=== PATIENT | female | born 1950 | race Caucasian/White ===

== ENCOUNTER → 2020-04-15 14:07 | Outpatient (CLI) | payer OTHER, SELFPAY ==
--- NOTE | ~2020-04-15 | MM_ITS ---
EXAMINATION: MM screening ursula BI w babar HISTORY: Screening mammogram TECHNIQUE: Craniocaudal and mediolateral oblique 3-D tomosynthesis images were obtained and synthetic 2-D images were generated. CAD analysis was submitted and interpreted. COMPARISON: 03/22/2018, 02/28/2017, 02/26/2015 bilateral digital screening mammogram examinations BREAST PARENCHYMAL COMPOSITION: There are scattered areas of fibroglandular density. FINDINGS: Numerous scattered bilateral benign calcifications are noted. Benign intramammary lymph nod e, left axillary tail. There is no evidence of suspicious mass, calcification, or architectural disto rtion to suggest malignancy in either breast. There has been no suspicious interval change. IMPRESSION: 1. No mammographic evidence of malignancy. 2. Recommend routine screening mammography in one year. BI-RADS Category 2: Benign finding(s). Reviewed, dictated and finalized at location A. PHONE ORDER SUPERVISOR
== END ==
PROVIDERS: PCP Internal Medicine; Visit Provider Nurse Practitioner
DX: Z12.31 Encounter for screening mammogram for malignant neoplasm of breast (principal)
CPT/HCPCS: 77063; 77067

== ENCOUNTER 2021-09-28 14:00 | Outpatient (RCR) | payer OTHER, SELFPAY ==
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
--- NOTE | 2021-10-09 12:45 | PCPTNOTE ---
Patient's called & cancelled all of her scheduled appointment this date, stating she is feeling better & doesn't need it anymore.
--- NOTE | 2021-10-14 07:41 | PCPTNOTE ---
PHYSICAL THERAPY DISCHARGE NOTE Attending Provider: Lencho Can DO Patient:Janeth Rachel Date of :1950 Patient has not returned for any further treatments since 09/28/2021, therefore she will be discharged at this time. Her called to cancel her remaining appointments as she was feeling better and did not need PT anymore. Patient?s initial visit was on 09/28/2021. Thank you for referring this patient to [facility]. Please review, sign, date and return this discharge summary INDER. I have been updated about the patient's current status and I agree with discharge from the above service at this time. Referring Physician Date
== END 2021-10-14 12:16 | disposition home or self-care (01) ==
LOC: ANHPT 14:00
PROVIDERS: PCP Internal Medicine; Referring Provider Internal Medicine; Visit Provider Internal Medicine
DX: M54.50 Low back pain, unspecified (principal); G89.29 Other chronic pain
CPT/HCPCS: 97110; 97112; 97162

== ENCOUNTER 2021-10-16 14:48 | Outpatient (CLI) | payer OTHER, SELFPAY ==
--- NOTE | ~2021-10-16 | US_ITS ---
EXAMINATION: US renal BI DATE: 10/16/2021 15:51 INDICATION: Chronic kidney disease TECHNIQUE: Multiple grayscale and Doppler ultrasound images of the kidneys were obtained. COMPARISON: None. FINDINGS: The right kidney measures 9.6 x 4.1 x 5.2 cm. The left kidney measures 9.9 x 5.0 x 5.4 cm. The kidneys demonstrate normal parenchymal echogenicity. There is no hydronephrosis. The bladder is n ormal. IMPRESSION: 1. Mild atrophy of the kidneys. Reviewed, dictated and finalized at location F.
== END 2021-10-16 14:49 | disposition home or self-care (01) ==
PROVIDERS: PCP Internal Medicine; Visit Provider Internal Medicine Nephrology
DX: N18.32 Chronic kidney disease, stage 3b (principal); I12.9 Hypertensive chronic kidney disease with stage 1 through stage 4 chronic kidney disease, or unspecified chronic kidney disease; E11.29 Type 2 diabetes mellitus with other diabetic kidney complication
CPT/HCPCS: 76775

== ENCOUNTER 2023-02-01 11:22 | Emergency (ER) | payer OTHER, SELFPAY ==
--- NOTE | ~2023-02-01 | CT_ITS ---
EXAMINATION: CT brain wo con INDICATION: Head injury COMPARISON: None TECHNIQUE: Standard unenhanced head CT. The dose-length product (DLP) was 681.00 mGy-cm. The mA was a djusted according to patient size. Iterative reconstruction technique was employed. FINDINGS: No acute intraparenchymal hemorrhage. No evidence of mass lesion. No evidence of acute infa rction. There is mild periventricular and subcortical hypodensity probably related to small vessel is chemic disease. There is mild prominence of the sulci and ventricles related to cerebral atrophy. Int racranial calcified cerebral atherosclerosis is noted. No extra-axial collections. No mass effect or midline shift. Changes in the globes are likely from ocular lens surgery. There is a left supraorbita l soft tissue laceration The visualized sinuses and mastoid air cells are well aerated. IMPRESSION: 1. No acute intracranial abnormality. 2. Age related findings. Reviewed, dictated and finalized at location L.
[2023-02-01 12:26] VITALS: BP 138/64; PULSE 78; RESP 18; TEMP 36.8; O2SAT 94
--- NOTE | 2023-02-01 15:06 | ED.HEATRA ---
HPI - Head Injury General Chief complaint: Head Injury Stated complaint: head injury Time Seen by Provider: 02/01/23 14:47 Source: patient Mode of arrival: ambulatory Limitations: no limitations History of Present Illness HPI Narrative: This is 73 year old female who presents for evaluation of left eyebrow laceration. PAtient states this morning she was sleeping when she rolled over in bed striking her head on nightstand. She denies headache, dizziness, nausea or vomiting. She denies taking blood thinner. sHe reports mild neck soreness. SHe thinks her last tetanus was in 2013. Related Data Home Medications Medication Instructions Recorded Confirmed cranberry 400 mg capsule 400 mg PO DAILY 03/30/19 01/10/23 omeprazole 20 mg capsule,delayed 20 mg PO DAILY 03/30/19 01/10/23 release melatonin 10 mg capsule 10 mg PO QHS 11/18/22 01/10/23 Allergies Allergy/AdvReac Type Severity Reaction Status Date / Time Sulfa (Sulfonamide Allergy Unknown Itching Verified 01/10/23 09:24 Antibiotics) Review of Systems Review of Systems: All systems reviewed & are unremarkable except as noted in HPI and below PMFSH Past Medical History Medical History Screening for breast cancer Vitamin D deficiency, unspecified Surgical History Surgical History H/O cataract removal with insertion of prosthetic lens History of knee replacement History of knee replacement Hx of tonsillectomy Family History Family History Sibling Cerebrovascular accident Family history of heart disease in male family member before age 55 Mother Family history of malignant neoplasm of breast in first degree relative, Onset Age: 63 Patient's mother is Father Patient's father is Family history of alcoholism Acute myocardial infarction Other Family history of thyroid disease Social History Social History Smoking packs per day: 0.25 Smoking cigarettes per day: 5.0 Years smoked: 3 Smoking pack-years: 0.75 Smoking status: Former smoker Tobacco type: cigarettes Smoking end date: 05/16/79 Alcohol intake: never Substance use: never Substance use type: does not use Lack of Transportation: No Lack of Food: Never True Current Housing: I Have Housing Concerned About Future Housing: No Difficulty Paying Gas/Electric Bills: No Difficulty Paying for Meds: No Currently Unemployed: No Education: High School Diploma/GED Difficulty w/ Childcare or Family Care: No Exam Const: General: no acute distress and alert Nutritional Appearance: well nourished Orientation/consciousness: patient oriented x3 HENMT: Head: laceration Mouth: Yes Normal oral and palatal mucosa present and Yes lip normal Throat: posterior oropharynx normal Other: laceration above left eyebrow 3 cm Eyes: Conjunctivae: conjunctivae normal Pupils: Equal, round and reactive pupils present EOM: EOMs intact bilaterally Neck: Neck: normal visual inspection and no lymphadenopathy Chest: Chest palpation & inspection: normal inspection of the chest Resp: Effort & Inspection: normal respiratory effort Neuro: General: patient oriented x3 and moves all extremities Psych: Mental Status: mental status grossly normal Affect: normal affect Attitude: cooperative Course Reevaluation(s) Reevaluation #1: I Discussed with patient about wound care. absorbable sutures Date: 02/01/23 Time: 17:45 Vital Signs Vital signs: Vital Signs Temperature 98.2 F 02/01/23 12:26 Pulse Rate 78 02/01/23 12:26 Respiratory Rate 18 02/01/23 12:26 Blood Pressure 138/64 02/01/23 12:26 Pulse Oximetry 94 02/01/23 12:26 Oxygen Delivery Room Air 02/01/23 12:26 Temperature 98.2 F 02/01/23
[2023-02-01] MEDS: TETANUS,DIPHTHERIA,AC PERTUSSIS ADULT (0.5 ML) BOOSTRIX IM (15:50)
== END 2023-02-01 17:49 | disposition home or self-care (01) ==
PROVIDERS: Emergency Provider General Practice; PCP Family Medicine
DX: S01.81XA Laceration without foreign body of other part of head, initial encounter (principal); Z87.891 Personal history of nicotine dependence; Z23 Encounter for immunization; W06.XXXA Fall from bed, initial encounter
CPT/HCPCS: 12013; 70450; 90471; 90715; 99284

== ENCOUNTER → 2023-02-17 12:58 | Outpatient (CLI) | payer OTHER, SELFPAY ==
--- NOTE | ~2023-02-17 | MM_ITS ---
EXAMINATION: MM screening ursula BI w babar HISTORY: Screening mammogram, family history of breast cancer in her mother. TECHNIQUE: Craniocaudal and mediolateral oblique 3-D tomosynthesis images were obtained and synthetic 2-D images were generated. CAD analysis was submitted and interpreted. COMPARISON: 04/15/2020, 03/22/2018, 02/28/2017 BREAST PARENCHYMAL COMPOSITION: There are scattered areas of fibroglandular density. FINDINGS: Scattered benign-appearing calcifications are present. No suspicious mass, calcification, o r architectural distortion are identified in either breast to suggest malignancy. There has been no s uspicious interval change. IMPRESSION: 1. No mammographic evidence of malignancy. 2. Recommend routine screening mammography in one year. BI-RADS Category 2: Benign finding(s). Reviewed, dictated and finalized at location A.
== END ==
PROVIDERS: PCP Nurse Practitioner; Visit Provider Nurse Practitioner
DX: Z12.31 Encounter for screening mammogram for malignant neoplasm of breast (principal)
CPT/HCPCS: 77063; 77067

== ENCOUNTER 2024-10-30 15:17 | Outpatient (CLI) | payer OTHER, SELFPAY ==
--- NOTE | ~2024-10-30 | XR_ITS ---
CHEST RADIOGRAPH, PA AND LATERAL CLINICAL HISTORY: R05.9 - Cough, unspecified . COMPARISON: 06/17/2014 TECHNIQUE: PA and lateral views of the chest. FINDINGS The cardiomediastinal silhouette is markedly enlarged, an interval change from prior. Prominence of the bilateral pulmonary dwaine are also noted, possibly representing lymphadenopathy, an interval change from prior. Interstitial thickening is present. IMPRESSION: Interval development of cardiomegaly when compared with 2015 examination. Prominent bilateral pulmonary dwaine for which lymphadenopathy versus enlarged pulmonary vasculature is suspected. Cross-sectional imaging (noncontrast enhanced CT examination of the chest) may be perform ed for further evaluation. The lungs are clear. Reviewed, dictated and finalized at location A. IMPRESSION: Interval development of cardiomegaly when compared with 2014 examination. Prominent bilateral pulmonary dwaine for which lymphadenopathy versus enlarged pu lmonary vasculature is suspected. Cross-sectional imaging (noncontrast enhanced CT examination of the chest) may be performed for further evaluation. The lungs are clear.
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
--- OUTSIDE RECORDS SUMMARY | 2024-10-30 16:17 | XMS_ITS | Clinical Summary ---
Author Organization [facility] Address [address] [place] [id number] Care Team Providers Care Disability Representative Name Role Phone Unavailable Primary Care Provider Unavailabl e Social History Tobacco Use Types Packs/Day Years Used Date Smoking Tobacco: Never Assessed Comments Unknown Sex and Gender Information Value Date Recorded Sex Assigned at Not on file Legal Sex Female 9:35 PM CDT Gender Identity Not on file Sexual Orientation Not on file Plan of Treatment Health Maintenance Due Date Last Done Comments Colorectal Cancer Screening Colonoscopy (10 Years) 1950 Hepatitis C 1967 DTaP, Tdap and Td Vaccines ( 1 - Tdap) 01/13/1968 Pneumococcal Vaccine: 50+ Ye ars (1 of 1 - PCV) 1999 Zoster Vaccines (1 of 2) 1999 Dexa Scan (General) 2014 RSV Immunization or 60+ Years (1 - 1-dose 75+ series) 01/13/2024 COVID-19 Vaccine ( - 2023-2 5 season) 2024 Meningococcal B Vaccine Aged Out No l onger eligible based on patient's age to complete this topic Meningococcal Vaccine Aged Out No lisa myrna eligible based on patient's age to complete this topic RSV Immunizations Under 20 Months Aged Out No longer eligible based on patient's age to complete this topic
== END 2024-10-30 15:18 | disposition home or self-care (01) ==
LOC: ANHIMG 15:22
PROVIDERS: PCP Nurse Practitioner; Visit Provider Nurse Practitioner
DX: R05.9 Cough, unspecified (principal)
CPT/HCPCS: 71046

== ENCOUNTER 2024-11-09 16:20 | Outpatient (CLI) | payer OTHER, SELFPAY ==
--- NOTE | ~2024-11-09 | CT_ITS ---
CT Scan of the Chest without Contrast: Clinical Indication: Abnormal findings on diagnostic imaging Technique: Contiguous sections were acquired throughout the chest without intravenous contrast. Dose reduction technique was used on this scan by utilizing automated exposure control and iterative recon struction technique. The dose-length product (DLP) was 854.39 mGy-cm. 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 There is no evidence of any significant mediastinal, hilar or axillary lymphadenopathy. Coronary andrzej ry calcifications are present. There is no evidence of pleural or pericardial effusion. There is mild chronic interstitial disease in the lungs, with peripheral distribution. 5 mm left basi lar pulmonary nodule present (axial image 88). Images through the upper abdomen reveal no abnormalities. Prominence of the adrenal glands suggests a drenal hyperplasia. There is mild degenerative spondylosis of the thoracic spine. Impression: Mild chronic interstitial pulmonary disease, as above. 5 mm left basilar pulmonary nodule. According to Fleischner Society criteria, for a low-risk patient, no further follow-up required. For a high-risk patient, consider 12 month follow-up CT. 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 Reviewed, dictated and finalized at location M. Impression: Mild chronic interstitial pulmonary disease, as above. 5 mm left basilar pulmonary nodule. According to Fleischner Society criteria, f or a low-risk patient, no further follow-up required. For a high-risk patient, consider 12 month follow-up CT. 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
== END 2024-11-09 16:21 | disposition home or self-care (01) ==
PROVIDERS: PCP Nurse Practitioner; Visit Provider Nurse Practitioner
DX: R93.89 Abnormal findings on diagnostic imaging of other specified body structures (principal); J84.9 Interstitial pulmonary disease, unspecified; R91.1 Solitary pulmonary nodule
CPT/HCPCS: 71250

== ENCOUNTER 2024-12-06 11:59 | Outpatient (CLI) | payer OTHER, SELFPAY ==
--- NOTE | ~2024-12-06 | US_ITS ---
US thyroid INDICATION: Nontoxic goiter TECHNIQUE: Real-time sonographic images of the thyroid gland were obtained. COMPARISON: No prior studies for comparison. FINDINGS: The right thyroid lobe measures 4.8 x 2 x 1.4 cm. The left thyroid lobe measures 6.7 x 2.7 x 3.1 cm.. There is heterogeneous bilateral thyroid echotexture. In the right lobe there is a solid hypoechoic wider than tall smoothly marginated mass without echogenic foci measuring 2.1 x 1.4 x 1.4 cm. In the left lobe there is a complex heterogeneous mass measuring 3.8 x 3 cm which is solid, sligh tly hypoechoic, wider than tall, irregular margins with internal echogenic foci, TR 5. There is a sma ller mass in the left lobe measuring 3.1 x 2.4 x 2.6 cm which is solid hypoechoic wider than tall smo othly marginated without echogenic foci, TR 4. Normal vascular flow is present. IMPRESSION: 1. Multiple bilateral thyroid masses meet sonographic criteria for biopsy including a 2.1 cm mass in the right lobe and 2 additional masses in the left lobe. Follow-up ultrasound-guided congressional representative biopsy recommended. Reviewed, dictated and finalized at location B. IMPRESSION: 1. Multiple bilateral thyroid masses meet sonographic criteria for biopsy incl uding a 2.1 cm mass in the right lobe and 2 additional masses in the left lobe. Follow-up ultrasound-guided congressional representative biopsy recommended.
--- OUTSIDE RECORDS SUMMARY | 2024-12-06 12:02 | XMS_ITS | Clinical Summary ---
Author Organization [facility] Address [address] [place] [id number] Care Team Providers Care Cargo Broker Name Role Phone Unavailable Primary Care Provider [...]
--- OUTSIDE RECORDS SUMMARY | 2024-12-06 12:02 | XMS_ITS | Clinical Summary ---
Author Organization [facility] Address [address] [place] [address] Care Team Providers Care Regional Vice President Surgical Sales Name Role Phone Unavailable Primary Care Provider Unavailabl e Source Comments [facility],non-owned Affiliates and Associated Physician Practices is amultiple site organization consisting of ambulatory clinics and hospital sitesin [place], [place], [place] and [place]. This disclosure is being madepursuant to the Care Everywhere program and may not contain all information available regarding this patient. 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
--- OUTSIDE RECORDS SUMMARY | 2024-12-06 12:02 | XMS_ITS | Clinical Summary ---
Author Organization [facility] Address [address] [place] [phone] Phone Care Team Providers Care Broadcast Program Director Name Role Phone Lencho Can DO Primary Care Provider Allergies Active Allergy Reactions Criticality Noted Date [...] Diagnosed Date Atherosclerotic heart diseas e of [place] coronary artery without angina pectoris 02/23/2013 Laceration [...] 4 - PCV) 02/23/2014 02/23/2013 Influenza Vaccine (#1) 2025 02/23/2013 Insurance [employer] H[employer] Care Teams Broadcast Program Director Relationship Specialty Start Date End Date Lencho Can DO [address] [place] [id number] PCP - General Internal Medicine 09/14/21
== END 2024-12-06 12:00 | disposition home or self-care (01) ==
PROVIDERS: PCP Internal Medicine; Visit Provider Internal Medicine
DX: E04.2 Nontoxic multinodular goiter (principal)
CPT/HCPCS: 76536

== ENCOUNTER 2025-01-01 12:47 | Outpatient (CLI) | payer OTHER, SELFPAY ==
--- OUTSIDE RECORDS SUMMARY | 2025-01-01 12:58 | XMS_ITS | Clinical Summary ---
Author Organization [facility] Address [address] [place] [address] Care Team Providers Care Laborer Gold Leaf Name Role Phone Unavailable Primary Care Provider Unavailabl e Source Comments [facility],non-owned Affiliates and Associated Physician Practices is amultiple site organization consisting of ambulatory clinics and hospital sitesin [place], [place], [place] and [place]. This disclosure is being madepursuant to the Care Everywhere program and may not contain all information available regarding this patient. 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
--- OUTSIDE RECORDS SUMMARY | 2025-01-01 12:59 | XMS_ITS | Clinical Summary ---
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
--- NOTE | 2025-01-01 13:05 | ECHO_ITS ---
Patient Info Name: Janeth Rachel Age: 74 years : 1950 Gender: Female Ht: 66 in Wt: 290 lbs BSA: 2.55 m2 HR: 96 bpm BP: 100 / 69 mmHg Heart Rhythm: Atrial Fibrillation Technical Quality: Good Exam Date: 01/01/2025 1:14 PM Patient Status: O Admit Date: 01/01/2025 Exam Type: CA echo doppler color flow Complete two-dimensional, color flow and Doppler transthoracic echocardiogram is performed. Electrode Cleaner: Ioana Lozano Attending Provider: Adolfo Oquendo Summary 1. Complete two-dimensional, color flow and Doppler transthoracic echocardiogram is performed. 2. Left ventricular chamber dimension is normal. 3. Left ventricular systolic function is normal, estimated at 55-60. 4. There is moderate concentric increased left ventricular wall thickness. 5. The left ventricular diastolic function is abnormal. 6. E/e' 13 is mildly elevated. 7. Atrial fibrillation. 8. Right ventricular chamber dimension is moderately enlarged. 9. Right ventricular systolic function is moderately reduced and with abnormal TAPSE 1.3 cm. 10. Right atrial chamber dimension is moderately enlarged. 11. There is mild aortic valve sclerosis. 12. The mitral valve has a moderately calcified annulus. 13. There is mild mitral valve regurgitation. 14. There is mild tricuspid valve regurgitation. 15. Severe pulmonary hypertension, estimated pulmonary arterial systolic pressure is 61 mmHg. 16. Dilated inferior vena cava with >50% collapse upon inspiration consistent with elevated right atrial pressure, 10 mmHg. 17. There is trivial pericardial effusion. Left Ventricle E/e' 13 is mildly elevated. Left ventricular chamber dimension is normal. Left ventricular systolic function is normal, estimated at 55-60. There is moderate concentric increased left ventricular wall thickness. The left ventricular diastolic function is abnormal. Atrial fibrillation. Right Ventricle Right ventricular chamber dimension is moderately enlarged. Right ventricular systolic function is moderately reduced and with abnormal TAPSE 1.3 cm. Left Atria Left atrial chamber dimension is normal. Right Atria Right atrial chamber dimension is moderately enlarged. Aortic Valve The aortic valve is trileaflet. There is mild aortic valve sclerosis. There is no aortic valve stenosis. There is no aortic valve regurgitation. Pulmonic Valve There is no pulmonic regurgitation. Mitral Valve The mitral valve has a moderately calcified annulus. There is no mitral valve stenosis. There is mild mitral valve regurgitation. Tricuspid Valve There is mild tricuspid valve regurgitation. Severe pulmonary hypertension, estimated pulmonary arterial systolic pressure is 61 mmHg. Pericardium/Pleural There is trivial pericardial effusion. Inferior Vena Cava Dilated inferior vena cava with >50% collapse upon inspiration consistent with elevated right atrial pressure, 10 mmHg. Aorta The aortic root size at the sinus of Valsalva is normal. Left Ventricular Outflow Tract Name Value Normal LVOT 2D LVOT Diameter 2.0 cm LVOT Doppler LVOT Peak Velocity 84 cm/s LVOT Peak Gradient 3 mmHg LVOT Mean Gradient 2 mmHg LVOT VTI 19 cm LVOT VTI/AV VTI Ratio 0.7 LVOT Stroke Volume 59 ml LVOT CO 11.2 l/min LVOT CI 4.4 l/min/m2 Pulmonic Valve Name Value Normal PV Doppler PV Peak Velocity 80 cm/s PV Peak Gradient 3 mmHg Mitral Valve Name Value Normal MV Diastolic Function MV E Peak Velocity 112 cm/s MV A Peak Velocity 70 cm/s MV E/A 1.6 MV Decel Time (PW) 176 ms MV Annular TDI MV E/e' (Septal) 12.5 MV E/e' (Lateral) 13.8 MV E/e' (Average) 13.2 Tricuspid Valve Name Value Normal TV Regurgitation Doppler TR Peak Velocity 359 cm/s TR Peak Gradient 51 mmHg Estimated PAP/RSVP RA Pressure 10 mmHg <=5 PA Systolic Pressure 61 mmHg <36 RV Systolic Pressure 61 mmHg <36 TV Annular TDI TV Lateral Li s' Velocity 7.4 cm/s >=9.5 Aorta Name Value Normal Ascending Aorta Ao Root Diameter (MM) 3.2 cm Ao Root Diam Index (MM) 1.3 cm/m2 Aortic Valve Name Value Normal AV Doppler AV Peak Velocity 128 cm/s AV Peak Gradient 7 mmHg AV Mean Gradient 5 mmHg AV VTI 28 cm AV Area (Cont Eq VTI) 2.1 cm2 >=3.0 AV Area (Cont Eq Ata) 2.0 cm2 AV DI (Ata) 0.65 AV Regurgitation 2D LVOT Area 3.1 cm2 Ventricles Name Value Normal LV Dimensions 2D/MM IVS Diastolic Thickness (2D) 1.5 cm 0.6-1.0 LVID Diastole (2D) 4.4 cm 3.8-5.2 LVIW Diastolic Thickness (2D) 1.4 cm 0.6-0.9 LVID Systole (2D) 3.1 cm 2.2-3.5 LVOT Diameter 2.0 cm LV Mass (2D Cubed) 255.40 g 67.00-162.00 LV Mass Index (2D Cubed) 100 g/m2 43-95 Relative Wall Thickness (2D) 0.64 <=0.42 LV Fractional Shortening/Ejection Fraction 2D/MM LV Fractional Shortening (2D) 29 % 27-45 LV EF (2D Teichholz) 56 % LV Diastolic Volume (4C MOD) 62 ml LV EF (4C MOD) 65 % LV Diastolic Volume (2C MOD) 86 ml LV EF (2C MOD) 54 % LV Diastolic Volume (BP MOD) 77 ml 46-106 LV Diastolic Volume Index (BP MOD) 30 ml/m2 29-61 LV Systolic Volume (BP MOD) 29 ml 14-42 LV Systolic Volume Index (BP MOD) 11 ml/m2 8-24 LV EF (BP MOD) 62 % 54-74 LV Diastolic Length (4C) 7.7 cm LV Systolic Length (4C) 5.8 cm LV Stroke Volume (4C MOD) 41 ml RV Dimensions 2D/MM RVID Diastole (2D) 5.4 cm 2.1-3.5 Atria Name Value Normal LA Dimensions LA Dimension (MM) 4.8 cm 2.7-3.8 LA Volume (4C A-L) 68 ml LA Volume (BP A-L) 63 ml RA Dimensions RA Systolic Major [place] Length (4C) 6.3 cm 2.2-2.8 RA Area (4C) 31.9 cm2 <=18.0 Report Signatures
== END 2025-01-01 12:48 | disposition home or self-care (01) ==
LOC: ANHCARD 12:49
PROVIDERS: PCP Nurse Practitioner; Visit Provider Nurse Practitioner
DX: I08.3 Combined rheumatic disorders of mitral, aortic and tricuspid valves (principal)
CPT/HCPCS: 93306

== ENCOUNTER 2025-01-09 14:04 | Outpatient (CLI) | payer OTHER, SELFPAY ==
--- OUTSIDE RECORDS SUMMARY | 2025-01-09 14:09 | XMS_ITS ---
Author Organization Unknown ENCOUNTERS Encounter Performer Location Date Diagnosis Diagnosis Status Outpatient [facility] [address] [place] [id number] [facility] [address] [place] [address] [id number] [facility] Outpatient [facility] [address] [place] [id number] [address] [facility] [address] [place] [id number] [address] [facility] [address] [place] [address] [id number] [facility] Pre Admit [facility] [address] [place] [address] [id number] Emergency [facility] [address] [place] [address] [id number] [facility] [address] [place] [address] [id number] [facility] Outpatient [facility] [address] [place] [address] [id number] [facility] *Note: Encounters from your own facility or health system may be excluded. Allergies, Adverse Reactions, Alerts Allergen Type Severity Identification Date Sulfa (Sulfonamide Antibiotics) drug allergy 3 [id number] Medications Name Date Quantity Days Supplied GPI Number
--- OUTSIDE RECORDS SUMMARY | 2025-01-09 14:09 | XMS_ITS | Clinical Summary ---
Author Organization [facility] Address [address] [place] [address] Care Team Providers Care Ship Mate Name Role Phone Unavailable Primary Care Provider Unavailabl e Source Comments [facility],non-owned Affiliates and Associated Physician Practices is amultiple site organization consisting of ambulatory clinics and hospital sitesin [place] and [place]. This disclosure is being madepursuant to the Care Everywhere program and may not contain all information available regarding this patient. 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
--- OUTSIDE RECORDS SUMMARY | 2025-01-09 14:09 | XMS_ITS | Clinical Summary ---
Author Organization [facility] Address [address] [place] [address] Care Team Providers Care Sephora Product Consultant Name Role Phone Unavailable Primary Care Provider Unavailabl e Social History Tobacco Use Types Packs/Day Years Used Date Smoking Tobacco: Never Assessed Comments Unknown Sex and Gender Information Value Date Recorded Sex Assigned at Not on file Legal Sex Female 9:35 PM CDT Gender Identity Not on file Sexual Orientation Not on file Plan of Treatment Upcoming Encounters Date Type Department Care Team (Late st Contact Info) Description 01/30/2025 10:30 AM CDT Appointment [facility] Ultrasound [address] [place] [address] Adolfo Oquendo, INFECTIOUS WASTE TECHNICIAN [address] [place] [address] Health Maintenance Due Date Last Done Comments [...]
--- OUTSIDE RECORDS SUMMARY | 2025-01-09 14:09 | XMS_ITS | Clinical Summary ---
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
--- NOTE | 2025-01-10 10:12 | WPDPFTINT ---
PFT Procedure Performed PFT Procedure Performed Spirometry with Pre/Post Bronchodilator Plethysmography (Lung Vol) Diffusing Cap (DLCO) Flow Vol Loop PFT Interpretation This is a pulmonary function test with spirometry, plethysmography and diffusing capacity. The test was performed and results interpreted in accordance with the 2019 and 2005 ATS/ERS Task Force guidelines respectively using the Global Lung Function Initiative-2012 reference equations. Patient demonstrated good effort and cooperation. Reproducibility criteria were met. The quality of the spirometry maneuver was Grade A. Findings: Spirometry: The contour the inspiratory and expiratory flow tracing are normal. The FVC is 1.93 L, 66% predicted. The FEV1 is 1.54 L, 69% predicted. The FEV1: FVC ratio is 80%. Plethysmography: The total lung capacity is 3.44 L, 64% predicted. The functional residual capacity is 1.72 L, 55% predicted. The residual volume is 1.51 L, 63% predicted. Diffusing capacity: The diffusing capacity unadjusted for hemoglobin and carboxyhemoglobin is 14.1, 68% predicted. The diffusing capacity adjusted for alveolar volume is 4.46, 108% predicted. Impression: There is a moderate restrictive ventilatory abnormality. The spirometry is normal without evidence of an obstructive abnormality. The diffusing capacity unadjusted for hemoglobin and carboxyhemoglobin is mildly decreased and normalizes when adjusted for alveolar volume. There are no prior studies for comparison
== END 2025-01-09 14:05 | disposition home or self-care (01) ==
PROVIDERS: PCP Nurse Practitioner; Visit Provider Internal Medicine
DX: I27.20 Pulmonary hypertension, unspecified (principal); R94.2 Abnormal results of pulmonary function studies
CPT/HCPCS: 94375; 94726; 94729

== ENCOUNTER 2025-04-05 14:32 | Outpatient (CLI) | payer OTHER, SELFPAY ==
--- NOTE | ~2025-04-05 | US_ITS ---
EXAMINATION: US thyroid DATE: 04/05/2025 15:58 INDICATION: Follow-up for bilateral thyroid nodules. History of fine-needle aspiration biopsy was inconclusive results. TECHNIQUE: Multiple ultrasound images of the thyroid were obtained. COMPARISON: Prior study dated 12/06/2024. FINDINGS: The right thyroid lobe measures 5.2 x 2.2 cmX2 cm. The left thyroid lobe measures 5.9 x 4.4 x 4 cm. Multiple bilateral thyroid nodules are noted again. Dominant, isoechoic nodules of the left lobe measures 3.2 cm and 2.5 cm each. Dominant mildly hyperechoic nodule of right lobe measures 2 cm in diameter. No microcalcifications are present. Lesions are prominent or oval in size. IMPRESSION: 1. Moderate thyromegaly. Bilateral thyroid nodules as described above are stable in size and morphology compared with 12/06/2024. The nodules are indeterminate in nature and require continued follow-up at six-month interval to ensure benign process. TI-RADS Category 3 Reviewed, dictated and finalized at location T. COLORER IMPRESSION: 1. Moderate thyromegaly. Bilateral thyroid nodules as described above are stabl e in size and morphology compared with 12/06/2024. The nodules are indeterminate in nature and require continued follow-up at six-month interval to ensure lena gn process. TI-RADS Category 3
--- OUTSIDE RECORDS SUMMARY | 2025-04-05 14:37 | XMS_ITS | Encounter Summary ---
Author Organization [facility] Address [address] [place] [address] Care Team Providers Care Service Advocate Contact Name Role Phone Lencho Can DO Primary Care Provider [phone] Encounter Details Date Type Department Care Team (Late st Contact Info) Description 01/30/2025 Hospital Orders Only [facility] Interventional Radiology [address] [place], [place] [address] Brittany Mike MD [address] [place] [address] Social History Tobacco Use Types Packs/Day Years Used Date Smoking Tobacco: Never Assessed Comments Unknown Sex and Gender Information Value Date Recorded Sex Assigned at Not on file Legal Sex Female 9:35 PM CDT Gender Identity Not on file Sexual Orientation Not on file documented as of this encounter Plan of Treatment Not on file documented as of this encounter Visit Diagnoses Not on filedocumented in this encounter Care Teams Service Advocate Contact Relationship Specialty Start Date End Date Lencho Can DO [address] [employer] [address] [address] PCP - General INTERNAL MEDICINE 01/28/25 documented as of this encounter
--- OUTSIDE RECORDS SUMMARY | 2025-04-05 14:37 | XMS_ITS | Clinical Summary ---
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
--- OUTSIDE RECORDS SUMMARY | 2025-04-05 14:37 | XMS_ITS | Clinical Summary ---
Author Organization [facility] Address [address] [place] [address] Care Team Providers Care Airbrush Artist Photography Name Role Phone Unavailable Primary Care Provider Unavailabl e Source Comments [facility] [employer],non-owned Affiliates and Associated Physician Practices is amultiple site organization consisting of ambulatory clinics and hospital sitesin [place], [place], [place] and [place]. This disclosure is being madepursuant to the Care Everywhere program and may not contain all information available regarding this patient. 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
--- OUTSIDE RECORDS SUMMARY | 2025-04-05 14:37 | XMS_ITS | Clinical Summary ---
Author Organization [facility] Address [address] [place] [id number] Care Team Providers Care Solar Tech Name Role Phone Lencho Can DO Primary Care Provider [phone] Encounters Date Type Department Care Team Description 01/30/2025 10:26 AM CDT - 01/30/2025 11:59 PM CDT Hospital Encounter [facility] [address] Jarrett Crowell NP Discharge Disposition: Inpatient Rehab Facility 01/30/2025 Travel 01/30/2025 Hospital Orders Only [facility] [place] [address] Brittany Mike MD from Last 3 Months Social History Tobacco Use Types Packs/Day Years Used Date Smoking Tobacco: Never Assessed Comments Unknown Sex and Gender Information Value Date Recorded Sex Assigned at Not on file Legal Sex Female 9:35 PM CDT Gender Identity Not on file Sexual Orientation Not on file Plan of Treatment Health Maintenance Due Date Last Done Comments Hepatitis C 1967 Zoster Vaccines (1 of 2) 1999 Annual Medicare Wellness Visit 2014 Dexa Scan (General) 2014 RSV Immunization or 60+ Years (1 - 1-dose 75+ series) 01/13/2024 COVID-19 Vaccine ( season) 2025 01/19/2024, 02/25/2022, 09/13/2021, Additional history exists Influenza Adult (#1) 2025 01/19/2024, 02/15/2023, 02/25/2022, Additional history exists DTaP, Tdap and Td Vaccines (2 - Td or Tdap) 02/01/2033 02/01/2023 Pneumococcal Vaccine: 50+ Years Completed 06/12/2017, 06/29/2014, 02/23/2013 Hepatitis A Vaccines Aged Out No long er eligible based on patient's age to complete this topic Meningococcal B Vaccine Aged Out No l onger eligible based on patient's age to complete this topic Meningococcal Vaccine Aged Out No lisa myrna eligible based on patient's age to complete this topic RSV Immunizations Under 20 Months Aged Out No longer eligible based on patient's age to complete this topic Procedures Procedure Name Priority Date/Time Associated Diagnosis Comments US GD THYROID FINE NDL ASPIR Routine 01/30/2025 11:47 AM CDT Thyroid nodule CYTOLOGY GENERIC Routine 01/30/2025 12:0 0 AM CDT Thyroid nodule from Last 3 Months Results * US GD THYROID FINE NDL ASPIR (01/30/2025 11:47 AM CDT) Anatomical Region Laterality Modality Neck Ultrasound, Radi ographic Imaging 01/30/2025 11:4 4 AM CDT Impressions 01/30/2025 11:48 AM CDT =====IMPRESSION:===== Procedure note for bilateral thyroid nodule 25-gauge FNA performed with ultrasound guidance. Ordered By: JARRETT CROWELL Interpreted By: Brittany Mike MD, 01/30/2025 11:44 AM Narrative 01/30/2025 11:48 AM CDT [facility] [address] [place], [place] [address] Procedure: Ultrasound guided thyroid fine-needle aspiration. Exam date/time: 01/30/2025 10:27 AM Indication: 75 female. Bilateral thyroid nodule fine-needle aspiration sampling. Comparison: Ultrasound thyroid 12/06/2024 Procedure and findings: Informed verbal and written consent was obtained from the patient/patient's medical power of patent prosecution attorney. The procedure was discussed including the rationale, alternatives, benefits and risks including but not limited to bleeding, infection and damage to adjacent structures. Patient was positioned supine on the stretcher. Initial survey ultrasound of the left thyroid lobe was performed showing an inferior lateral nodule measuring 3.4 x 3.3 x 3.1 cm and a inferior medial nodule measuring 3.7 x 2.5 x 3.1 cm. There is an inferior right thyroid lobe nodule measuring 1.4 2.0 x 1.3 cm. These were targeted for sampling. Timeout was performed. The patient's neck was prepped and draped in usual sterile fashion. 1% lidocaine was administered for local anesthesia. Multiple 25-gauge fine-needle aspiration (FNA) samples were acquired from first the left inferior lateral and then the left inferior medial nodule under real-time ultrasound guidance. A total of 4 passes were made in each nodule. The inferior right thyroid lobe nodule was then targeted and 25- gauge fine-needle aspiration samples acquired. A total of 2 passes were made into this nodule. Samples were collected and evaluated for adequacy by the warehouse order picker on site. A small sterile dressing was placed. Patient tolerated the procedure well. There were no immediate complications. Crusher Tender: Dr. Mike Procedure Note Brittany Mike MD - 01/30/[address] [address] Procedure: Ultrasound guided thyroid fine-needle aspiration. Exam date/time: 01/30/2025 10:27 AM Indication: 75 female. Bilateral thyroid nodule fine-needle aspirationsampling. Comparison: Ultrasound thyroid 12/06/2024 Procedure and findings: Informed verbal and written consent was obtained from thepatient/patient's medical power of patent prosecution attorney. The procedure was discussedincluding the rationale, alternatives, benefits and risks including butnot limited to bleeding, infection and damage to adjacent structures. Patient was positioned supine on the stretcher. Initial survey ultrasoundof the left thyroid lobe was performed showing an inferior lateral nodulemeasuring 3.4 x 3.3 x 3.1 cm and a inferior medial nodule measuring 3.7 x2.5 x 3.1 cm. There is an inferior right thyroid lobe nodule measuring 1.4 2.0 x 1.3cm. These were targeted for sampling. Timeout was performed. The patient's neck was prepped and draped in usual sterile fashion. 1%lidocaine was administered for local anesthesia. Multiple 91-zzhcmxlcc-blbzvu aspiration (FNA) samples were acquired from first the leftinferior lateral and then the left inferior medial nodule under real-timeultrasound guidance. A total of 4 passes were made in each nodule. Theinferior right thyroid lobe nodule was then targeted and 68-pqghogfoh-zdklsd aspiration samples acquired. A total of 2 passes were madeinto this nodule. Samples were collected and evaluated for adequacy by thecytotechnologist on site. A small sterile dressing was placed. Patient tolerated the procedure well.There were no immediate complications. Crusher Tender: Dr. Mike =====IMPRESSION:===== Procedure note for bilateral thyroid nodule 25-gauge FNA performed withultrasound guidance. Ordered By: JARRETT CROWELL Interpreted By: Brittany Mike MD, 01/30/2025 11:44 AM us Jarrett Crowell NP ULTRASOUND Final Result * CYTOLOGY GENERIC (01/30/2025 12:00 AM CDT) CYTOLOGY OTHER [facility] Department of Laboratory Medicine [address] [place] [phone] , extension [phone] Pathology Report FNA Cytology Report Name: JANETH SCHNEIDER Specimen #: [id number] Age: 8 1950 (Age: 75) Location: [facility] Sex: F Procedure Date: 01/30/2025 [facility] #: [id number] Date Received: 01/31/2025 Date Reported: Provider: JARRETT CROWELL NP Source: A: THYROID, LEFT LATERAL, FINE NEEDLE ASPIRATION B: THYROID, LEFT MEDIAL, FINE NEEDLE ASPIRATION C: THYROID, RIGHT, FINE NEEDLE ASPIRATION Clinical History: LEFT LATERAL THYROID 3.4 CM LEFT MEDIAL THYROID 3.7 CM RIGHT THYROID 2.3 CM FINAL DIAGNOSIS: A. Thyroid, left lateral, fine-needle aspiration: - Satisfactory for evaluation. - Negative for malignant cells. - Consistent with a benign follicular nodule. B. Thyroid, left medial, fine-needle aspiration: - Satisfactory for evaluation. - Suspicious for follicular neoplasm, Hurthle cell type, see comment. C. Thyroid, right, fine-needle aspiration: - Satisfactory for evaluation. - Suspicious for follicular neoplasm, Hurthle cell type, see comment. Diagnosis Comment: Portions of specimens B and C have been submitted to [facility] for [facility] Genomic Sequencing Siding Mechanic. The results of that testing will be reported in an addendum. This case is reviewed by Dr. Lj Jacobs, with concurrence. Gross Description: PASSES MADE: 8 (plus one additional pass for potential AFIRMA testing) SPECIMEN RECEIVED: 8 Diff-Quik slides, 8 alcohol-fixed slides SLIDES PREPARED: 16 smears, all slides microscopically examined by a pathologist STAINS: Papanicolaou, Diff-Quik Initial cytologic screening, interpretation, and sign out were performed at [facility] [place], [address] [place] [address], [facility] Intraoperative Diagnosis: A. Thyroid, left lateral, fine needle aspiration, immediate evaluation for adequacy Pass 1: adequate Pass 2: adequate Pass 3: adequate Pass 4: AFIRMA Rapid on-site consultation performed by BRETT Eaton (ASC) at [facility], [address] [place] [address] B. Thyroid, left medial, fine needle aspiration, immediate evaluation for adequacy Pass 1: adequate Pass 2: adequate Pass 3: adequate Pass 4: AFIRMA Rapid on-site consultation performed by BRETT Eaton (ASCP) at [facility], [address] [place] [address] C. Thyroid, right, fine needle aspiration, immediate evaluation for adequacy Pass 1: adequate Pass 2: adequate Pass 3: AFIRMA Rapid on-site consultation performed by BRETT Eaton (ASCP) at [facility], [address] [facility], [place] [address] Electronically Signed Out Juan Luis Stanton M.D. Addenda/Procedures AFIRMA Gene Expression Siding Mechanic Analysis Date Ordered: 02/06/2025 Status: Signed Out Date Complete: 02/06/2025 By: Juan Luis Stanton M.D Date Reported: 02/28/2025 Comment {Not Entered} Results [facility] Thyroid FNA Analysis [employer] Genomic Sequencing Siding Mechanic (GSC), Malignancy Siding Mechanic testing, and Xpression [place] testing were performed by [employer] on this specimen with the following results: B. 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 The risk of malignancy of a GSC Suspicious Afirma XA negative sample remains approximately 50%. Clinical correlation and surgical resection should be considered. C. Right thyroid: [facility]irma GSC Result: No result [facility] Malignancy Classifiers Result: BRAF V600E and MTC negative; RET/PTC1 and RET/PTC3 not detected [facility] Expression [place] Result: Not applicable Results Interpretation: No result for [employer] GSC due to low databases software consultant follicular content. Low follicular content is found in samples primarily composed of lymphocytes, macrophages or blood. Methods: Testing was performed on thyroid FNA material collected in Afirma FNAprotect solution. The [facility] Thyroid FNA Analysis is a diagnostic service provided by [employer] [address] [place] [id number]. Interpretation of all testing was done by [facility]. The [employer] Genomic Sequencing Siding Mechanic, [employer] Malignancy Siding Mechanic, and [facility] Xpression [place] and their performance characteristics were determined by [facility]. [facility] MTC is an RNA databases software consultant that identifies the presence of medullary thyroid carcinoma. BRAF is a BRAF p. V600E, c. 1799T>A RNA databases software consultant. RET/PTC is a gene expression marker of somatic rearrangements of the RET protooncogene (RET/PTC1 and RET/PTC3). [facility] Xpression [place] sequences 593 genes to measure the presence or absence of 905 nucleotide variants and 235 fusion pairs. The [facility] Thyroid FNA Analysis is used for clinical purposes and clinical correlation of its results is recommended. The [facility] is certified under the Clinical Laboratory Improvement Amendments of 1988 (CLIA) to perform high-complexity clinical testing. This test has not been cleared or approved by the FDA. Juan Luis Stanton M.D. [facility] 01/30/2025 01/31/2025 9:11 AM CDT Comment:THYROID, LEFT LATERA L, FINE NEEDLE ASPIRATION&THYROID, LEFT MEDIAL, FINE NEEDLE ASPIRATION&THYROID, RIGHT, FINE NEEDLE ASPIRATION us Jarrett Crowell NP PATHOLOGY/CYTOLOGY ORDERABLES Final Result Performing Organization Address City/State/[facility] Co de Phone Number [facility] [address] [place] [address], [phone] from Last 3 Months Insurance [employer] Care Teams Solar Tech Relationship Specialty Start Date End Date Lencho Can DO [address] [facility] [address] [address] PCP - General INTERNAL MEDICINE 01/28/25
== END 2025-04-05 14:33 | disposition home or self-care (01) ==
PROVIDERS: PCP Nurse Practitioner; Visit Provider Otolaryngology
DX: E07.9 Disorder of thyroid, unspecified (principal); E04.2 Nontoxic multinodular goiter
CPT/HCPCS: 76536